=== PATIENT | male | born 2000 | race Caucasian/White ===

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

== ENCOUNTER 2019-09-12 13:56 | Emergency (ER) | payer BC, OTHER ==
[2019-09-12 14:01] VITALS: BP 152/87; PULSE 99
[2019-09-12] MEDS ORDERED: Lidocaine 2% 5 ML SDV ONE (14:28)
[2019-09-12] MEDS ORDERED: Lidocaine 2% 5 ML SDV INJECT ONE (14:28)
--- NOTE | 2019-09-12 14:39 | EDM.PDOC ---
ED HPI GENERAL MEDICAL PROBLEM - General Chief Complaint: General Stated Complaint: laceration right thumb Time Seen by Provider: 09/12/19 14:33 Source of Information: Reports: Patient History Limitations: Reports: No Limitations - History of Present Illness INITIAL COMMENTS - FREE TEXT/NARRATIVE: Patient is a 19-year-old gentleman who presents to the emergency department via private vehicle with a complaint of laceration to right thumb. Patient states that he was working with equipment and a sharp piece of metal cut his finger. He denies any fracture of metal, glass, or suspicion of foreign body. Patient is up-to-date with tetanus. Patient denies any other injury. 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) - Related Data Allergies Allergy/AdvReac Type Severity Reaction Status Date / Time cefdinir [From Omnicef] Allergy Hives Verified 09/12/19 14:02 Home Meds: Home Meds Dextroamphetamine/Amphetamine [Mydayis ER 25 mg Capsule] 25 mg PO DAILY [History] Past Medical History - Past Health History Medical/Surgical History: Denies Medical/Surgical History HEENT History: Reports: None Respiratory History: Reports: Asthma Genitourinary History: Reports: None 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 Neurological History: Reports: Concussion, Migraines Psychiatric History: Reports: ADHD Endocrine/Metabolic History: Reports: None - Infectious Disease History Infectious Disease History: Reports: Influenza - Past Surgical History HEENT Surgical History: Reports: Myringotomy w Tube(s) Respiratory Surgical History: Reports: None Male Surgical History: Reports: Circumcision Endocrine Surgical History: Reports: None Neurological Surgical History: Reports: None Musculoskeletal Surgical History: Reports: Amputation, Other (See Below) Other Musculoskeletal Surgeries/Procedures:: left little finger tip Social & Family History - Family History Family Medical History: Noncontributory - Tobacco Use Smoking Status *Q: Former Smoker Used Tobacco, but Quit: Yes Month/Year Tobacco Last Used: quit october 2017 - Caffeine Use Caffeine Use: Reports: Coffee, Soda - Alcohol Use Days Per Week of Alcohol Use: 2 Number of Drinks Per Day: 5 Total Drinks Per Week: 10 - Recreational Drug Use Recreational Drug Use: No ED ROS GENERAL - Review of Systems Review Of Systems: Comprehensive ROS is negative, except as noted in HPI. Constitutional: Reports: No Symptoms HEENT: Reports: No Symptoms Respiratory: Reports: No Symptoms Cardiovascular: Reports: No Symptoms Endocrine: Reports: No Symptoms GI/Abdominal: Reports: No Symptoms : Reports: No Symptoms Musculoskeletal: Reports: No Symptoms Skin: Reports: Wound (Laceration to right thumb tip) Neurological: Reports: No Symptoms Psychiatric: Reports: No Symptoms Hematologic/Lymphatic: Reports: No Symptoms Immunologic: Reports: No Symptoms ED EXAM, GENERAL - Physical Exam Exam: See Below Exam Limited By: No Limitations General Appearance: Alert, WD/WN, No Apparent Distress Throat/Mouth: Normal Inspection, Normal Oropharynx, No Airway Compromise Head: Atraumatic, Normocephalic Respiratory/Chest: No Respiratory Distress Extremities: Normal Inspection Neurological: Alert, Oriented, Normal Cognition Psychiatric: Normal Affect, Normal Mood Skin Exam: Warm, Dry, Normal Color, No Rash, Wound/Incision (There is a 1 cm linear laceration to tip of right thumb.) ED GENERAL MEDICAL PROCEDURES - Laceration/Wound Repair Right Distal Digit - 1st (Thumb) Lac/wound length in cm: 1 Appearance: Superficial Distal NVT: Neuro & Vascular Intact, No Tendon Injury Anesthetic Type: Digital Local Anesthesia - Lidocaine (Xylocaine): 1% Plain Local Anesthetic Volume: 2cc Skin Prep: Providone-Iodine (Betadine) Closed with: Sutures Suture Size: 4-0 # of Sutures: 2 Suture Type: Nylon, Interrupted Sterile Dressing Applied: Nurse Tetanus Status Addressed: Yes Complications: No Course - Vital Signs Last Recorded V/S: Last Vital Signs Temp 96.2 F L 09/12/19 13:58 Pulse 99 09/12/19 13:58 Resp 18 09/12/19 13:58 BP 152/87 H 09/12/19 13:58 Pulse Ox 98 09/12/19 13:58 - Orders/Labs/Meds Meds: Medications Discontinued Medications Generic Name Dose Route Start Last Admin Trade Name Freq PRN Reason Stop Dose Admin Lidocaine 2 ml 09/12/19 14:28 09/12/19 14:29 Xylocaine-Mpf 2% INJECT 09/12/19 14:29 2 ml ONETIME ONE Administration Lidocaine Confirm 05/27/20 14:28 Xylocaine-Mpf 2% Administered 09/12/19 14:29 Dose 5 ml .ROUTE .[facility] - Re-Assessments/Exams Free Text/Narrative Re-Assessment/Exam: 09/12/19 14:37 Patient afebrile, vital signs stable, tolerated procedure well. Patient up-to- date with tetanus. Patient will follow-up with PCP in 10 days for suture removal Departure - Departure Time of Disposition: 14:37 Disposition: Home, Self-Care 01 Condition: Good Clinical Impression: Finger laceration Qualifiers: Encounter type: initial encounter Finger: thumb Damage to nail status: without damage Foreign body presence: without foreign body Laterality: right Qualified Code(s): S61.011A - Laceration without foreign body of right thumb without damage to nail, initial encounter - Discharge Information Instructions: Sutures, Michelle, or Adhesive Wound Closure, [id number], Laceration Care, Adult, [id number] Referrals: Aisha Pierce PA-C [Primary Care Provider] - Additional Instructions: Follow-up with PCP for suture removal in 10 days. Return to emergency department if symptoms continue or worsen Sepsis Event Note - Evaluation Sepsis Screening Result: No Definite Risk - Focused Exam Vital Signs: Vital Signs Temp Pulse Resp BP Pulse Ox 09/12/19 13:58 96.2 F L 99 18 152/87 H 98 Date Exam was Performed: 09/12/19 Time Exam was Performed: 14:33 - Assessment/Plan Assessment:: Laceration right thumb Plan: Follow-up with PCP
== END 2019-09-12 14:45 | disposition home or self-care (01) ==
LOC: KA.ED 13:56
DX: S61.011A Laceration without foreign body of right thumb without damage to nail, initial encounter (principal); J45.909 Unspecified asthma, uncomplicated; Z88.1 Allergy status to other antibiotic agents; Z87.891 Personal history of nicotine dependence; W26.8XXA Contact with other sharp object(s), not elsewhere classified, initial encounter; Y99.0 Civilian activity done for income or pay
CPT/HCPCS: 12001; 99282; J2001